=== PATIENT | female | born 1970 | race Caucasian/White ===

== ENCOUNTER 2018-02-09 14:00 | Emergency (ER) | payer OTHER ==
[2016-06-22 10:57] VITALS: BMI 30.4
[~2018-02-09 14:00] MED LIST: CYCLOBENZAPRINE10 MG PO; DIFLUCAN150 MG; FERROCITE PLUS1 CAP PO; GABAPENTIN100 MG PO; HYDROCODON-ACE1 EAC7 PO; HYDROCODONE-APA1 TAB PO; IBUPROFEN600 MG PO; LEVOXYL25 MCG PO; LEXAPRO10 MG; MIDOL; MIDOL PO; NUPRIN200 MG PO; PERCOCET 10/3251 TA1 PO; ROBAXIN-750750 MG PO; ZOFRAN4 MG PO; [UNRECOGNIZED DRUG - OTHER] PO
[2018-02-09 14:24] LABS: BASOPHILS 0.9 % (0-2); EOSINOPHILS 2.1 % (0-7); HEMATOCRIT 42.5 % (36.0-48.0); IMMATURE GRANULOCYTES 0.1 % (0-5); LYMPHOCYTES 35.2 % (15-50); MCHC 32.9 g/dL (31.0-37.0); MCV 91.2 fL (80.0-100.0); MEAN PLATELET VOLUME 11.3 fL (7.4-10.4); MONOCYTES 6.9 % (2-11); NEUTROPHILS 54.8 % (40-80); PLATELET COUNT 220 10x3/uL (130-400); RBC 4.66 10x6/uL (4.00-5.40); RDW 13.4 % (11.5-14.5); WBC 7.7 10x3/uL (4.8-10.8)
[2018-02-09 14:45] LABS: ANION GAP 15.5 mmol/L (8-16); BILIRUBIN - TOTAL 0.27 mg/dL (0.2-1.3); CALCIUM 9.2 mg/dL (8.5-10.1); CARBON DIOXIDE 25.4 mmol/L (21.0-32.0); CREATININE - SERUM 0.9 mg/dL (0.6-1.3); POTASSIUM - SERUM 3.9 mmol/L (3.5-5.1); PROTEIN - SERUM 7.8 g/dL (6.4-8.2)
[2018-02-09 14:51] LABS: APPEARANCE CLEAR (CLEAR); BILIRUBIN NEGATIVE (NEGATIVE); COLOR YELLOW (YELLOW); GLUCOSE NEGATIVE (NEGATIVE); KETONE NEGATIVE (NEGATIVE); NITRITE NEGATIVE (NEGATIVE); PROTEIN NEGATIVE (NEGATIVE); UROBILINOGEN NORMAL (NORMAL)
== END 2018-02-09 19:16 | disposition home or self-care (01) ==
LOC: D.ER 14:00
PROVIDERS: Emergency Medicine
DX: E86.0 Dehydration (principal)

== ENCOUNTER 2018-06-01 17:08 | Observation (INO) | payer OTHER ==
[~2018-06-01] VITALS: Ht 165.1 cm; Wt 78.4 kg
--- NOTE | ~2018-06-01 | CN ---
PATIENT NAME:JOSEPH VENEGAS MEDICAL RECORD: [id number] : 74 LOCATION:D.M2 D.2101 ADMIT DATE: 06/01/18 ACCOUNT: [id number] CONSULTING PHYSICIAN: JOSHUA VILLEDA MD REFERRING PHYSICIAN: DANIEL EVANS DO DATE OF CONSULTATION: 06/02/2018 ADMITTING DIAGNOSES: 1. Chest pain. 2. Shortness of breath. HISTORY OF PRESENT ILLNESS: Mrs. Venegas presents with episodic chest pain, is actually epigastric pain with radiation to her chest. She had a cardiac workup within the last 2 years including cardiac catheterization was normal. Her EKG is normal. Her troponins are normal. PHYSICAL EXAMINATION: GENERAL APPEARANCE: Well nourished, well developed, appears stated age. Level of distress, comfortable. PSYCHIATRIC: Mental status, alert, normal affect. Orientation, oriented to time, place and person. EYES: Lids and conjunctivae, noninjected. No discharge, no pallor. ENT: Lips, teeth, gums, normal dentition. Oropharynx, no cyanosis, no pallor. NECK: Carotid arteries, bilateral normal upstroke, no bruits, no thrills. JUGULAR VEINS: No jugular venous pressure or distention. CERVICAL LYMPH NODES: Nontender, nonenlarged. THYROID: Not enlarged. Nontender. No nodules. LUNGS: Respiratory effort, unlabored. CHEST: Normal curvature. No thoracic deformity. No chest wall tenderness. Percussion, resonant. Auscultation, clear. No wheezes, no rales, no rhonchi. CARDIOVASCULAR: Precordial exam, nondisplaced. No heaves or pericardial thrills. Rate and rhythm, regular. Heart sounds, normal S1, normal S2. No S3, no gallop, no rub. Systolic murmur, not heard. Diastolic murmur, not heard. EXTREMITIES: No cyanosis, no edema. Peripheral pulses, full and equal in all extremities, except as noted. No bruits appreciated. ABDOMEN: Soft, nondistended. Normal aorta. No bruit. Nontender. No masses. Liver, nontender, no hepatomegaly. Spleen, nontender, no splenomegaly. MUSCULOSKELETAL: No joint tenderness. No joint swelling. No erythema. NEUROLOGICAL: Normal gait, normal strength, normal tone. SKIN: Warm and dry. OVERALL IMPRESSION: Chest pain, this is noncardiac in etiology with normal cardiac catheterization within the last 2 years. Normal troponin and normal EKG. No other cardiac workup treatment is necessary at this time. Most likely this discomfort is gastrointestinal in etiology. TRANSINT:[id number] Voice Confirmation ID: [id number] DOCUMENT ID: [id number] CONSULT REPORT [id number] JOSEPH VENEGAS JEFFREY MD at 1642 CC: [id number] DICTATION DATE: 06/02/18 1107 SPAGHETTI PRESS HELPER: 06/02/18 1148 [facility] IN 06/05/18 [id number] [place] [address]
[2018-06-01 18:46] LABS: BASOPHILS 0.8 % (0-2); EOSINOPHILS 2.7 % (0-7); HEMATOCRIT 38.6 % (36.0-48.0); HEMOGLOBIN 12.5 g/dL (12-16); IMMATURE GRANULOCYTES 0.2 % (0-5); LYMPHOCYTES 31.9 % (15-50); MCH 29.8 pg (26.0-34.0); MCHC 32.4 g/dL (31.0-37.0); MCV 92.1 fL (80.0-100.0); MONOCYTES 11.3 % (2-11); NEUTROPHILS 53.1 % (40-80); PLATELET COUNT 209 10x3/uL (130-400); RBC 4.19 10x6/uL (4.00-5.40); RDW 13.8 % (11.5-14.5); WBC 6.6 10x3/uL (4.8-10.8)
[2018-06-01 18:59] LABS: ALBUMIN 3.9 g/dL (3.4-5.0); ALKALINE PHOSPHATASE 87 U/L (46-116); ALT (SGPT) 38 U/L (10-68); BILIRUBIN - TOTAL 0.15 mg/dL (0.2-1.3); CALC OSMOLALITY 288 mosm/kg (275-300); CHLORIDE - SERUM 107 mmol/L (98-107); GLUCOSE 86 mg/dL (74-106); POTASSIUM - SERUM 4.1 mmol/L (3.5-5.1); PROTEIN - SERUM 7.2 g/dL (6.4-8.2); SODIUM 145 mmol/L (136-145); UREA NITROGEN 14 mg/dL (7-18); eGFR NON AFRICAN AMERICAN 63 mL/min (90-120)
[2018-06-01 20:04] LABS: CKMB 1.1 U/L (0.0-3.6); CREATINE KINASE 170 UL (21-215); TROPONIN-I < 0.017 ng/mL (0.000-0.060)
[2018-06-02] VITALS (7 sets, daily range): BP systolic 97–134; BP diastolic 59–88; Ht 165.1 cm; Wt 78.4 kg
[2018-06-02 01:35] LABS: CREATINE KINASE 150 UL (21-215)
[2018-06-02 01:37] LABS: TROPONIN-I < 0.017 ng/mL (0.000-0.060)
[2018-06-02 05:20] LABS: BASOPHILS 0.8 % (0-2); EOSINOPHILS 3.8 % (0-7); HEMATOCRIT 39.4 % (36.0-48.0); HEMOGLOBIN 12.9 g/dL (12-16); LYMPHOCYTES 35.8 % (15-50); MCHC 32.7 g/dL (31.0-37.0); MCV 91.6 fL (80.0-100.0); MEAN PLATELET VOLUME 10.8 fL (7.4-10.4); MONOCYTES 12.2 % (2-11); NEUTROPHILS 47.4 % (40-80); PLATELET COUNT 209 10x3/uL (130-400); RDW 13.8 % (11.5-14.5); WBC 5.2 10x3/uL (4.8-10.8)
[2018-06-02 05:43] LABS: ALBUMIN 3.4 g/dL (3.4-5.0); BILIRUBIN - TOTAL 0.18 mg/dL (0.2-1.3); CALCIUM 8.4 mg/dL (8.5-10.1); CREATININE - SERUM 0.9 mg/dL (0.6-1.3); PROTEIN - SERUM 6.8 g/dL (6.4-8.2)
[2018-06-02 07:23] LABS: CKMB 0.9 U/L (0.0-3.6); CREATINE KINASE 126 UL (21-215)
[2018-06-02 07:27] LABS: TROPONIN-I < 0.017 ng/mL (0.000-0.060)
[2018-06-02 12:04] LABS: ERYTHROCYTE SEDIMENTATION RATE 18 mm/hr (0-20)
[2018-06-03 00:36] VITALS: BP 113/69
[2018-06-03 03:49] LABS: BASOPHILS 0.8 % (0-2); EOSINOPHILS 3.4 % (0-7); HEMATOCRIT 36.6 % (36.0-48.0); IMMATURE GRANULOCYTES 0.2 % (0-5); MCH 29.8 pg (26.0-34.0); MCHC 32.8 g/dL (31.0-37.0); MCV 90.8 fL (80.0-100.0); MEAN PLATELET VOLUME 10.5 fL (7.4-10.4); MONOCYTES 14.1 % (2-11); NEUTROPHILS 43.5 % (40-80); PLATELET COUNT 201 10x3/uL (130-400); RBC 4.03 10x6/uL (4.00-5.40); RDW 13.6 % (11.5-14.5)
[2018-06-03 04:25] LABS: ALBUMIN 3.1 g/dL (3.4-5.0); ALKALINE PHOSPHATASE 80 U/L (46-116); BILIRUBIN - TOTAL 0.22 mg/dL (0.2-1.3); CALC OSMOLALITY 280 mosm/kg (275-300); CALCIUM 7.9 mg/dL (8.5-10.1); CARBON DIOXIDE 29.1 mmol/L (21.0-32.0); CHLORIDE - SERUM 106 mmol/L (98-107); CREATININE - SERUM 0.8 mg/dL (0.6-1.3); GLUCOSE 84 mg/dL (74-106); POTASSIUM - SERUM 3.8 mmol/L (3.5-5.1); PROTEIN - SERUM 6.6 g/dL (6.4-8.2); SODIUM 142 mmol/L (136-145); UREA NITROGEN 11 mg/dL (7-18); eGFR NON AFRICAN AMERICAN 82 mL/min (90-120)
[2018-06-03 04:27] LABS: ALT (SGPT) 25 U/L (10-68)
[2018-06-03 05:01] VITALS: BP 100/70
[2018-06-03 08:43] VITALS: BP 104/63
[2018-06-03 13:40] VITALS: BP 117/72
[2018-06-03 16:17] VITALS: BP 115/64
[2018-06-03 21:24] VITALS: BP 105/70
[2018-06-04 00:57] VITALS: BP 104/65
[2018-06-04 04:46] LABS: BASOPHILS 1.2 % (0-2); EOSINOPHILS 3.7 % (0-7); HEMOGLOBIN 11.7 g/dL (12-16); LYMPHOCYTES 38.3 % (15-50); MCH 29.7 pg (26.0-34.0); MCHC 32.5 g/dL (31.0-37.0); MCV 91.4 fL (80.0-100.0); MEAN PLATELET VOLUME 10.5 fL (7.4-10.4); MONOCYTES 11.8 % (2-11); PLATELET COUNT 196 10x3/uL (130-400); RBC 3.94 10x6/uL (4.00-5.40); RDW 13.6 % (11.5-14.5); WBC 5.1 10x3/uL (4.8-10.8)
[2018-06-04 04:58] LABS: ALBUMIN 3.1 g/dL (3.4-5.0); ANION GAP 11.2 mmol/L (8-16); BILIRUBIN - TOTAL 0.17 mg/dL (0.2-1.3); CALCIUM 8.6 mg/dL (8.5-10.1); CREATININE - SERUM 0.9 mg/dL (0.6-1.3); POTASSIUM - SERUM 4.2 mmol/L (3.5-5.1); PROTEIN - SERUM 6.5 g/dL (6.4-8.2)
[2018-06-04 05:52] VITALS: BP 102/67
[2018-06-04 11:16] VITALS: BP 110/73
[2018-06-04 15:11] VITALS: BP 107/65
[2018-06-04 20:00] VITALS: BP 119/74
[2018-06-05 04:17] VITALS: BP 84/51
[2018-06-05] MEDS ORDERED: VALTREX500 MG PO (13:36)
[2018-06-05] MEDS ORDERED: LIDODERM 5 %1 PATCH TRANSDERM (13:37)
== END 2018-06-05 17:30 | disposition home or self-care (01) ==
LOC: D.MS 17:08 → D.M2 17:15 → OBSVTIME 17:35 → D.M2 17:35 → D.SDCHOLD 06-02 01:27 → D.M2 06-02 01:27
PROVIDERS: Family Medicine
DX: B02.9 Zoster without complications (principal)

== ENCOUNTER → 2018-11-16 18:37 | Outpatient (CLI) | payer OTHER ==
[2018-06-02 04:16] VITALS: BMI 28.0
[~2018-11-16 18:37] MED LIST changes: +ABILIFY10 MG PO; +LEVOTHYROXINE50 MCG PO; +LIDODERM 5 %1 PATCH TRANSDERM; +VALTREX500 MG PO
== END | disposition home or self-care (01) ==
LOC: D.LABREF 18:37
DX: D72.829 Elevated white blood cell count, unspecified (principal); R31.9 Hematuria, unspecified

== ENCOUNTER → 2018-11-23 08:02 | Outpatient (CLI) | payer OTHER ==
[2018-06-02 04:16] VITALS: BMI 28.0
== END | disposition home or self-care (01) ==
LOC: D.CT 08:00
DX: R31.0 Gross hematuria (principal)

== ENCOUNTER 2018-12-04 06:18 | Day surgery (SDC) | payer OTHER ==
[~2018-12-04] VITALS: Ht 165.1 cm; Wt 72.6 kg
[2018-12-04 06:49] LABS: BASOPHILS 0.9 % (0-2); EOSINOPHILS 3.2 % (0-7); HEMATOCRIT 41.2 % (36.0-48.0); HEMOGLOBIN 13.5 g/dL (12-16); LYMPHOCYTES 42.7 % (15-50); MCH 30.1 pg (26.0-34.0); MCHC 32.8 g/dL (31.0-37.0); MEAN PLATELET VOLUME 10.4 fL (7.4-10.4); MONOCYTES 8.7 % (2-11); NEUTROPHILS 44.5 % (40-80); RBC 4.48 10x6/uL (4.00-5.40); RDW 13.3 % (11.5-14.5); WBC 6.5 10x3/uL (4.8-10.8)
[2018-12-04 06:50] LABS: APTT 32.3 SECONDS (22.8-39.4); INR 0.9 (0.85-1.17); PROTIME 11.7 SECONDS (11.6-15.0)
[2018-12-04 07:22] LABS: PLATELET COUNT 253 10x3/uL (130-400)
[2018-12-04 07:32] VITALS: BP 92/59; Ht 165.1 cm; Wt 72.6 kg
--- NOTE | 2018-12-04 12:20 | OP ---
PATIENT NAME: JOSEPH BOLDEN MEDICAL RECORD: [id number] :74 LOCATION:D.OPS ADMISSION DATE: SURGEON: TOI REYNOSO MD DATE OF OPERATION: 12/04/2018 SURGEON: Toi Reynoso MD ANESTHESIA: TIVA by Rolf Guallpa CRNA DIAGNOSES: [place] hematuria, interstitial cystitis. PROCEDURES: Cystoscopy, left retrograde pyelogram, hydrodistention of the bladder, intravesical Rimso instillation 50 mL. FINDINGS: Inflamed bladder with no bladder tumors. Single ureteral orifices seen bilaterally. On retrograde pyelogram, no filling defects and no hydronephrosis. Rapid ureteral drainage of contrast was seen. SPECIMENS: None. BLOOD LOSS: None. CLINICAL HISTORY: This is a 48-year-old female, G9, P2, A7 who has a chief complaint of gross hematuria for the past 2-3 years. She had previously seen Dr. Coronel, but he left town soon afterwards and nothing specific was diagnosed. She had cystoscopy at [facility] 2-1/2 years ago and she was told that there were no bladder tumors. She has a history of hysterectomy. She does complain of nocturia with urge incontinence and also stress incontinence symptoms. She has daytime urinary frequency every 1 to 1-1/2 hours. There is dyspareunia as well as suprapubic and pelvic pains. On examination, she had tenderness in the urethra and trigonal region of the bladder. She comes today to have cystoscopy done. For the hematuria workup, she had a CT scan of the abdomen and pelvis, this was normal in terms of the tract except there was some possible irregularity in the distal left ureter. A retrograde pyelogram was suggested by the radiologist. Therefore, we will perform a retrograde pyelogram. If bladder inflammation is found, consistent with her presumed diagnosis of interstitial cystitis, then we will proceed to hydrodistention of the bladder and intravesical Rimso instillation. She is not allergic to any medications. She was given Ancef marketing and public relations manager to the OR. DESCRIPTION OF PROCEDURE: The patient was given IV sedation. She was then placed in dorsal lithotomy position and prepped and draped. A 21-Tajik cystoscope with 30-degree lens was used for visualization. Diffuse bladder inflammation was seen. No bladder tumors were seen. The left ureteral orifice was intubated using an open-ended ureteral catheter. Diluted contrast was then injected for the retrograde pyelogram. This was seen all the way up into the renal pelvis. The ureteral catheter was then removed and I watched the contrast drain from the renal pelvis all the way down to the bladder under live fluoroscopy. No evidence of obstruction or filling defects were seen. The ureteral catheter was then removed. I then distended the bladder with at least 500 mL of normal saline for at least 1 minute. Once this was done, the bladder was emptied through the cystoscope sheath and the scope was removed. We then inserted a 14-Tajik red rubber catheter into the bladder. A 50 mL of intravesical Rimso solution was then instilled into the bladder. The catheter was removed, leaving the solution in place. The patient will hold the solution OPERATIVE REPORT [id number] JOSEPH BOLDEN in place for at least 15 minutes and then void it out. She will be seen in 2 weeks' time to have Rimso treatment #2 if she still needs it. TRANSINT:[id number] Voice Confirmation ID: [id number] DOCUMENT ID: [id number] TOI REYNOSO MD at 1220 CC: [id number] DICTATION DATE: 12/04/18 1003 AIRFIELD MANAGER: 12/04/18 1111 [facility] [address] [place] [address]
--- NOTE | 2018-12-04 15:43 | NUR ---
1135 DRESSED, AWAKE & ALERT. GIVEN DISCHARGE INFORMATION INCLUDING: MED REC, RTC APPT., [facility] D/C INSTRUCTIONS & POST CYSTOSCOPY D/C INSTRUCTIONS. PT VOICED UNDERSTANDING. TO PRIVATE CAR PER WHEELCHAIR BY VOLUNTEER. HOME WITH MOTHER, [place]. Angelia DE LA VEGA R.N.
== END 2018-12-04 11:35 | disposition home or self-care (01) ==
LOC: D.OPS 06:18 → D.PAN 09:45 → D.OPS 11:35
PROVIDERS: Anesthesiology
DX: N30.11 Interstitial cystitis (chronic) with hematuria (principal); N39.46 Mixed incontinence; R35.0 Frequency of micturition; R35.1 Nocturia; Z01.812 Encounter for preprocedural laboratory examination

== ENCOUNTER → 2019-01-02 16:18 | Outpatient (CLI) | payer OTHER ==
[2018-12-04 07:32] VITALS: BMI 26.6
== END | disposition home or self-care (01) ==
LOC: D.CT 16:18
PROVIDERS: ATTEND Family Medicine
DX: R07.89 Other chest pain (principal)

== ENCOUNTER → 2019-05-20 16:32 | Outpatient (CLI) | payer OTHER ==
[2018-12-04 07:32] VITALS: BMI 26.6
== END | disposition home or self-care (01) ==
LOC: D.LABREF 16:32
PROVIDERS: ATTEND Urology
DX: R31.9 Hematuria, unspecified (principal)

== ENCOUNTER → 2019-06-12 18:38 | Outpatient (CLI) | payer OTHER ==
[2018-12-04 07:32] VITALS: BMI 26.6
== END | disposition home or self-care (01) ==
LOC: D.LABREF 18:38
PROVIDERS: ATTEND Urology
DX: R31.9 Hematuria, unspecified (principal)

== ENCOUNTER 2019-06-20 06:01 | Day surgery (SDC) | payer OTHER ==
[~2019-06-20] VITALS: Ht 167.6 cm; Wt 82.6 kg
[2019-06-20 06:36] LABS: HEMATOCRIT 39.8 % (36.0-48.0); HEMOGLOBIN 13.5 g/dL (12-16); MCH 30.5 pg (26.0-34.0); MCHC 33.9 g/dL (31.0-37.0); MCV 89.8 fL (80.0-100.0); MEAN PLATELET VOLUME 10.6 fL (7.4-10.4); RBC 4.43 10x6/uL (4.00-5.40); RDW 13.4 % (11.5-14.5)
[2019-06-20 06:46] VITALS: BP 111/71; Ht 167.6 cm; Wt 82.6 kg
--- NOTE | 2019-06-20 10:52 | NUR ---
0955-REC'D FROM SURGERY. DROWSY,EASILY AROUSED WITH VERBAL STIMULI.DENIES COMPLAINTS. ABLE TO ROLL FROM SIDE TO SIDE. VSS. FRIEND AT BEDSIDE, CL IN EASY REACH
--- NOTE | 2019-06-20 10:53 | NUR ---
1040-DISCHARGE CRITERIA MET.IV REMOVED WITH CATH INTACT,DISPOSED INTO SHARPS,COVERED SITE WITH BANDAID.REVIEWED DISCHARGE INSTRUCTIONS WITH PT AND FAMILY MEMBER.VERBALIZED UNDERSTANDING WITHOUT QUESTIONS OR CONCERNS. ESCORTED OUT VIA W/C BY VOLUNTEER WITH FAMILY MEMBER DRIVING HOME.
--- NOTE | 2019-06-20 12:38 | OP ---
PATIENT NAME: JOSEPH BOLDEN MEDICAL RECORD: [id number] :74 LOCATION:D.OPS ADMISSION DATE: SURGEON: PIETRO REYNOSO MD DATE OF OPERATION: 06/20/2019 SURGEON: Pietro Reynoso MD ANESTHESIA: TIVA by Belinda Brower CRNA. DIAGNOSES: Gross hematuria, interstitial cystitis. PROCEDURES: Cystoscopy, hydrodistention, and intravesical Rimso installation. FINDINGS: On cystoscopy, single ureteral orifices bilaterally. No bladder tumors. Diffusely inflamed bladder. BLOOD LOSS: None. CLINICAL HISTORY: This is a 49-year-old female with a history of hematuria. She had a workup in the past and she was found to have interstitial cystitis. She had cystoscopy, hydrodistention, and intravesical Rimso in November of this year. That helped her urinary symptoms. She also has stress urinary incontinence, which we have not treated yet. At the present time, she has a flare up of her symptoms including urge incontinence, nocturia times 4, and suprapubic pain. She wishes to have the treatment for interstitial cystitis done again. She is not allergic to any medications. She was given Ancef housing relocation to the OR. DESCRIPTION OF PROCEDURE: The patient was given IV sedation. She was then placed in lithotomy position and prepped and draped. A 17-Nauruan cystoscope was used for visualization. Findings are as outlined above. I filled the bladder to about 600 mL capacity and held it for 2 minutes. Bladder was then emptied. We then introduced a 16-Nauruan red rubber catheter and through the lumen of the red rubber catheter, we instilled 50 mL of Rimso solution into the bladder. Once the solution was in the bladder, the catheter was removed. The patient will hold the solution in for 15 minutes and then void it out. She will be seen next week for her Rimso treatment #2. TRANSINT:[id number] Voice Confirmation ID: [id number] DOCUMENT ID: [id number] PIETRO REYNOSO MD at 1238 CC: [id number] DICTATION DATE: 06/20/19 0953 MECHANOTHERAPIST: 06/20/19 1158 [facility] 06/20/19 [place] [address]
== END 2019-06-20 10:40 | disposition home or self-care (01) ==
LOC: D.OPS 06:01 → D.PAN 09:05 → D.OPS 10:40
PROVIDERS: Anesthesiology; ATTEND Urology
DX: R31.0 Gross hematuria (principal); N30.11 Interstitial cystitis (chronic) with hematuria

== ENCOUNTER → 2019-06-25 14:56 | Outpatient (CLI) | payer OTHER ==
[2019-06-20 06:46] VITALS: BMI 29.4
== END | disposition home or self-care (01) ==
LOC: D.LABREF 14:56
PROVIDERS: ATTEND Urology
DX: R31.9 Hematuria, unspecified (principal)

== ENCOUNTER → 2019-07-02 14:26 | Outpatient (CLI) | payer OTHER ==
[2019-06-20 06:46] VITALS: BMI 29.4
== END | disposition home or self-care (01) ==
LOC: D.LABREF 14:26
PROVIDERS: ATTEND Urology
DX: R31.9 Hematuria, unspecified (principal); Z00.01 Encounter for general adult medical examination with abnormal findings